=== PATIENT | female | born 1970 | race Two or more races ===

== ENCOUNTER 2020-12-10 16:28 | Emergency (ER) | payer OTHER ==
[~2020-12-10] VITALS: Ht 172.7 cm; Wt 95.3 kg
--- NOTE | 2020-12-10 17:00 | NUR ---
PT BIBS FEELING DIZZY/LIGHTHEADED SINCE THIS MORNNG. ALERT AND ORIENTED X3. NON LABORED BREATHING.
--- NOTE | 2020-12-10 17:15 | NUR ---
IV @ R AC 20G
--- NOTE | 2020-12-10 17:20 | NUR ---
BLOOD AND URINE SAMPLES COLLECTED AND SENT TO LAB
--- NOTE | 2020-12-10 17:25 | NUR ---
SERAFIN BLOOD TAKEN AND SENT TO LAB
[2020-12-10 17:26] LABS: BASOPHILS % (AUTO) 0.3 % (0.0-2.0); EOSINOPHILS % (AUTO) 0.1 % (0.0-6.0); HEMATOCRIT 38 % (33-45); HEMOGLOBIN 13.3 g/dL (11.5-14.8); LYMPHOCYTES % (AUTO) 12.6 % (20.0-44.0); MEAN CORPUSCULAR HGB CONC 35 g/dl (31.0-36.0); MEAN CORPUSCULAR VOLUME 92 fL (82-100); MONOCYTES # (AUTO) 0.5 K/uL (0.1-1.30); MONOCYTES % (AUTO) 6.1 % (2.0-12.0); NEUTROPHILS # (AUTO) 6.3 K/uL (1.8-8.9); NEUTROPHILS % (AUTO) 80.9 % (43.0-81.0); PLATELET COUNT (AUTO) 399 K/uL (150-450); RED BLOOD CELL COUNT(AUTO) 4.14 MIL/uL (4.0-5.2); WHITE BLOOD COUNT (AUTO) 7.8 K/uL (4.3-11.0)
[2020-12-10] MEDS: IV NS 0.9% 1,000 ML BAG IV ONE (17:28)
[2020-12-10 17:33] LABS: BILIRUBIN,URINE Negative (NEGATIVE); COLOR,URINE YELLOW (YELLOW); LEUKOCYTE ESTERASE ,URINE Negative (NEGATIVE); NITRITE, URINE Negative (NEGATIVE); PH,URINE 7.5 (5.0-8.0); PROTEIN,URINE Negative (NEGATIVE); UGLUCOSE Negative (NEGATIVE); UROBILINOGEN,URINE 0.2 EU/dL (0.2)
[2020-12-10 17:34] LABS: CALCIUM, SERUM 9.2 mg/dL (8.5-10.1); CARBON DIOXIDE 26 mmol/L (21-32); CHLORIDE 89 mmol/L (98-107); CREATININE 0.7 mg/dL (0.6-1.3); GLUCOSE 100 mg/dL (74-106); POTASSIUM 3.6 mmol/L (3.5-5.1); SODIUM SERUM 126 mmol/L (136-145); UREA NITROGEN, BLOOD 10 mg/dL (7-18)
[2020-12-10 17:39] LABS: ALANINE AMINOTRANSFERASE 19 U/L (12-78); ALBUMIN 4.3 g/dL (3.4-5.0); ALKALINE PHOSPHATASE 120 U/L (46-116); ASPARTATE AMINOTRANSFERASE 15 U/L (15-37); BILIRUBIN,DIRECT 0.1 mg/dL (0.0-0.2); BILIRUBIN,TOTAL 0.3 mg/dL (0.2-1.0)
[2020-12-10 18:44] LABS: CALCIUM, SERUM 8.3 mg/dL (8.5-10.1); CREATININE 0.7 mg/dL (0.6-1.3); POTASSIUM 3.9 mmol/L (3.5-5.1)
[2020-12-10 19:10] VITALS: BP 130/87
--- NOTE | 2020-12-10 19:10 | NUR ---
Patient discharged to home in stable condition. Written and verbal after care instructions given. Patient verbalizes understanding of instruction.IV removed. Catheter intact and site benign. Pressure and 4x4 applied to site. No bleeding noted.
== END 2020-12-10 19:10 | disposition home or self-care (01) ==
LOC: ER 16:31
DX: E87.1 Hypo-osmolality and hyponatremia (principal); R00.0 Tachycardia, unspecified; Z20.822 Contact with and (suspected) exposure to COVID-19; M06.9 Rheumatoid arthritis, unspecified; Z88.0 Allergy status to penicillin; E87.8 Other disorders of electrolyte and fluid balance, not elsewhere classified
CPT/HCPCS: 36415; 80048 ×2; 80076; 81003; 84484; 84703; 85025; 87426; 93005; 96360; 99284; C9803; J7030

== ENCOUNTER 2024-02-15 19:51 | Emergency (ER) | payer OTHER ==
[~2024-02-15] VITALS: Ht 172.7 cm; Wt 97.5 kg
[2024-02-15 21:04] VITALS: BP 136/89; TEMP 98.4; O2SAT 98
== END 2024-02-15 21:20 | disposition home or self-care (01) ==
LOC: ER 19:57
DX: B34.9 Viral infection, unspecified (principal); I10 Essential (primary) hypertension; M06.9 Rheumatoid arthritis, unspecified; Z88.0 Allergy status to penicillin

== ENCOUNTER 2024-04-03 19:52 | Emergency (ER) | payer OTHER ==
[~2024-04-03] VITALS: Ht 172.7 cm; Wt 97.1 kg
[2024-04-03 21:55] LABS: BASOPHILS % (AUTO) 0.5 % (0.0-2.0); EOSINOPHILS % (AUTO) 0.9 % (0.0-6.0); HEMATOCRIT 38 % (33-45); HEMOGLOBIN 12.8 g/dL (11.5-14.8); LYMPHOCYTES # (AUTO) 1.9 K/uL (0.8-4.8); LYMPHOCYTES % (AUTO) 38.2 % (20.0-44.0); MEAN CORPUSCULAR HEMOGLOBIN 30 PG (26.0-33.0); MEAN CORPUSCULAR HGB CONC 34 g/dl (31.0-36.0); MEAN CORPUSCULAR VOLUME 91 fL (82-100); MONOCYTES # (AUTO) 0.5 K/uL (0.1-1.30); MONOCYTES % (AUTO) 9.2 % (2.0-12.0); NEUTROPHILS # (AUTO) 2.6 K/uL (1.8-8.9); NEUTROPHILS % (AUTO) 51.2 % (43.0-81.0); PLATELET COUNT (AUTO) 289 K/uL (150-450); RED BLOOD CELL COUNT(AUTO) 4.19 MIL/uL (4.0-5.2); RED CELL DISTRIBUTION WIDTH 13.8 % (11.5-15.0); WHITE BLOOD COUNT (AUTO) 5.1 K/uL (4.3-11.0)
[2024-04-03 22:04] LABS: CALCIUM, SERUM 9.1 mg/dL (8.5-10.1); CARBON DIOXIDE 30 mmol/L (21-32); CHLORIDE 104 mmol/L (98-107); GLUCOSE 93 mg/dL (74-106); POTASSIUM 3.8 mmol/L (3.5-5.1); SODIUM SERUM 141 mmol/L (136-145); UREA NITROGEN, BLOOD 9 mg/dL (7-18)
[2024-04-03 22:08] LABS: INR 1.02 (0.91-1.10); PROTHROMBIN TIME 10.5 SECS (9.2-11.1)
[2024-04-03 22:16] LABS: ALANINE AMINOTRANSFERASE 25 U/L (12-78); ALKALINE PHOSPHATASE 132 U/L (46-116); ASPARTATE AMINOTRANSFERASE 17 U/L (15-37); BILIRUBIN,TOTAL 0.3 mg/dL (0.2-1.0); NT-PRO BNP 22 pg/mL (0-125); TOTAL PROTEIN, SERUM 7.6 g/dL (6.4-8.2)
[2024-04-03] MEDS ORDERED: IV NS 0.9% 250 ML IV ONE (22:43)
[2024-04-03] MEDS ORDERED: IOHEXOL-350 100 ML VIAL IV ONE (22:43)
[2024-04-04] MEDS ORDERED: ALBU8.5H8 INH (02:13)
[2024-04-04 02:14] VITALS: BP 138/92; TEMP 98; O2SAT 99
== END 2024-04-04 02:14 | disposition home or self-care (01) ==
LOC: ER 19:55
DX: R07.89 Other chest pain (principal); R06.02 Shortness of breath; M06.9 Rheumatoid arthritis, unspecified; Z88.0 Allergy status to penicillin; Z60.2 Problems related to living alone
CPT/HCPCS: 99285; 71275; 71045; 93005; 85025; 80048; 80076; 36415 ×2; 84484 ×2; 85730; 83880; J7050; Q9967

== ENCOUNTER 2025-03-14 09:53 | Emergency (ER) | payer OTHER ==
[~2025-03-14] VITALS: Ht 172.7 cm; Wt 90.7 kg
[~2025-03-14 09:53] MED LIST: ALBU8.5H8 INH
[2025-03-14 10:33] LABS: BLOOD, URINE Trace-intact Ery/uL (NEGATIVE); LEUKOCYTE ESTERASE ,URINE Trace (NEGATIVE); NITRITE, URINE NEGATIVE (NEGATIVE); UGLUCOSE Negative (NEGATIVE)
[2025-03-14] MEDS ORDERED: MECLIZINE HCL 25 MG TABLET ONE (10:35)
[2025-03-14] MEDS: IV NS 0.9% 1,000 ML BAG IV ONE (10:35)
[2025-03-14] MEDS: MECLIZINE HCL 25 MG TABLET PO ONE (10:37)
[2025-03-14 10:40] LABS: PLATELET COUNT (AUTO) 324 K/uL (150-450); RED BLOOD CELL COUNT(AUTO) 4.21 MIL/uL (4.0-5.2); RED CELL DISTRIBUTION WIDTH 12.9 % (11.5-15.0); WHITE BLOOD COUNT (AUTO) 7.5 K/uL (4.3-11.0)
[2025-03-14 10:43] LABS: ADD URINE CULTURE YES; APPEARANCE,URINE CLOUDY (CLEAR); SQUAMOUS EPITHELIAL CELL,UR Few /HPF (None Seen)
[2025-03-14] MEDS ORDERED: MECL-159 PO (10:47)
[2025-03-14] MEDS ORDERED: CEPH-570 PO (10:47)
[2025-03-14 10:54] LABS: CALCIUM, SERUM 8.6 mg/dL (8.5-10.1); CREATININE 1.0 mg/dL (0.6-1.3); SODIUM SERUM 138.0 mmol/L (136-145); UREA NITROGEN, BLOOD 13.0 mg/dL (7-18)
[2025-03-14 11:01] LABS: PHOSPHORUS 3.8 mg/dL (2.5-4.9)
[2025-03-14 12:02] VITALS: BP 128/77; TEMP 98.3; O2SAT 98
== END 2025-03-14 12:02 | disposition home or self-care (01) ==
LOC: ER 10:12
DX: N39.0 Urinary tract infection, site not specified (principal); R42 Dizziness and giddiness; R55 Syncope and collapse; M06.9 Rheumatoid arthritis, unspecified; Z88.0 Allergy status to penicillin
CPT/HCPCS: 99284; 96360; 93005; 85025; 80048; 87086; 83735; 84100; 81001; 36415; 84439; 84443; J8597; J7030